=== PATIENT | female | born 1975 | race Caucasian/White ===

== ENCOUNTER 2020-05-28 18:02 | Emergency (ER) | payer OTHER, MEDICAID ==
[~2020-05-28] VITALS: Ht 170.2 cm; Wt 74.8 kg
[~2020-05-28 18:02] MED LIST: HYDR-3658
--- NOTE | 2020-05-28 18:04 | NUR ---
BROTHER NAE WANTS TO BE INFORMED OF SISTER'S CONDITION. CALL [phone]
[2020-05-28] MEDS ORDERED: methylPREDNISolone SOD SUCC 125 MG/2ML VIAL ONE (18:15)
[2020-05-28] MEDS ORDERED: EPINEPHRINE (1:1000) 1 MG/ML AMPUL ONE (18:15)
[2020-05-28] MEDS ORDERED: diphenhydrAMINE HCL 50 MG/ML VIAL ONE (18:15)
[2020-05-28] MEDS ORDERED: FAMOTIDINE/PF INJ 20 MG/2 ML VIAL IV ONE ×2 (18:17→18:30)
[2020-05-28] MEDS ORDERED: EPINEPHRINE (1:1000) 1 MG/ML AMPUL SUBCUT ONE (18:30)
[2020-05-28] MEDS ORDERED: methylPREDNISolone SOD SUCC 125 MG/2ML VIAL IV ONE (18:30)
[2020-05-28] MEDS ORDERED: diphenhydrAMINE HCL 50 MG/ML VIAL IV ONE (18:30)
--- NOTE | 2020-05-28 18:32 | NUR ---
CAMRON FROM HOME TO ER BED 12. AAOX4. NOT IN RESP DISTRESS, BREATHING EVEN AND UNLABORED. TALKING IN SENTENCES. BROUGHT IN FOR AN ALLERGIC REACTION. PER PT, SHE USE A HAIR BLEACH ON HER AND STARTED TO HAVE REDNESS, HIVES AND ITHCHING. 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 PT IN NOTED WITH REDNESS AND ITCHING ON HER SCALP. NOTED HIVE ALL OVER THE BODY. SHAMEKA MOSCOSO AT BEDSIDE FOR EVAL. ORDERS RECEIVED NOTED AND CARRIED OUT. IV ESTABLISHED ON R AC 20G. MEDICATED ORDERED. WILL CONTINUE TO MONITOR PT
--- NOTE | 2020-05-28 18:38 | NUR ---
Eugene fishman in [facility] - 05/28/20 at 1838 by KATHERINE EMT AT BEDSIDE FOR ORTHO TX
--- NOTE | 2020-05-28 20:47 | NUR ---
Patient discharged to home in stable condition. Written and verbal after care instructions given. Patient verbalizes understanding of instruction.IV removed. Catheter intact and site benign. Pressure and 4x4 applied to site. No bleeding noted. Pt ambulatory with a steady gait
[2020-05-28 20:48] VITALS: BP 102/58
== END 2020-05-28 20:49 | disposition home or self-care (01) ==
LOC: ER 18:02
DX: T88.6XXA Anaphylactic reaction due to adverse effect of correct drug or medicament properly administered, initial encounter (principal); T49.4X5A Adverse effect of keratolytics, keratoplastics, and other hair treatment drugs and preparations, initial encounter; L50.9 Urticaria, unspecified; Z98.890 Other specified postprocedural states; Y92.89 Other specified places as the place of occurrence of the external cause
CPT/HCPCS: 96372; 96374; 96375; 99284; J0171; J1200; J2930; J3490

== ENCOUNTER 2021-04-04 14:20 | Emergency (ER) | payer OTHER, MEDICAID ==
[~2021-04-04] VITALS: Ht 162.6 cm; Wt 82.1 kg
--- NOTE | 2021-04-04 14:45 | NUR ---
THE PATIENT BIBS FOR C/O ALLERGIC REACTION AFTER USING HAIR DYE, SPEAKING FULL SENTENCES,NAD. IN ROOM AIR AND DENIES SOB. RESPIRATION REGULAR AND UNLABORED. COMPLAINS OF ABDMINAL PAIN 2/10. NOTED SCATTERED RASH ON CHEST AND LIGHT FACIAL REDNESS. WILL CONTINUE TO MONITOR THE PATIENT.
[2021-04-04] MEDS ORDERED: diphenhydrAMINE HCL 50 MG/ML VIAL ONE (15:49)
[2021-04-04] MEDS ORDERED: FAMOTIDINE/PF INJ 20 MG/2 ML VIAL IV ONE (15:49)
[2021-04-04 16:10] LABS: BASOPHILS % (AUTO) 0.5 % (0.0-2.0); EOSINOPHILS % (AUTO) 0.5 % (0.0-6.0); HEMATOCRIT 39 % (33-45); HEMOGLOBIN 12.6 g/dL (11.5-14.8); LYMPHOCYTES % (AUTO) 21.2 % (20.0-44.0); MEAN CORPUSCULAR HGB CONC 33 g/dl (31.0-36.0); MEAN CORPUSCULAR VOLUME 90 fL (82-100); MONOCYTES # (AUTO) 0.6 K/uL (0.1-1.30); MONOCYTES % (AUTO) 6.3 % (2.0-12.0); NEUTROPHILS # (AUTO) 6.6 K/uL (1.8-8.9); NEUTROPHILS % (AUTO) 71.5 % (43.0-81.0); PLATELET COUNT (AUTO) 320 K/uL (150-450); RED BLOOD CELL COUNT(AUTO) 4.32 MIL/uL (4.0-5.2); WHITE BLOOD COUNT (AUTO) 9.3 K/uL (4.3-11.0)
[2021-04-04 16:13] LABS: BILIRUBIN,URINE Negative (NEGATIVE); COLOR,URINE YELLOW (YELLOW); LEUKOCYTE ESTERASE ,URINE Small (NEGATIVE); NITRITE, URINE Negative (NEGATIVE); PROTEIN,URINE Negative (NEGATIVE); UGLUCOSE Negative (NEGATIVE); UROBILINOGEN,URINE 0.2 EU/dL (0.2)
[2021-04-04 16:18] LABS: CALCIUM, SERUM 8.9 mg/dL (8.5-10.1); CREATININE 0.6 mg/dL (0.6-1.3); POTASSIUM 3.9 mmol/L (3.5-5.1)
[2021-04-04] MEDS: IV NS 0.9% 1,000 ML IV ONE (16:22)
[2021-04-04] MEDS: diphenhydrAMINE HCL 50 MG/ML VIAL IV ONE (16:22)
[2021-04-04] MEDS: FAMOTIDINE/PF INJ 20 MG/2 ML VIAL IV ONE (16:22)
[2021-04-04 16:24] LABS: ALBUMIN 3.6 g/dL (3.4-5.0); BILIRUBIN,DIRECT 0.1 mg/dL (0.0-0.2); BILIRUBIN,TOTAL 0.2 mg/dL (0.2-1.0); TOTAL PROTEIN, SERUM 7.6 g/dL (6.4-8.2)
[2021-04-04 16:32] LABS: BACTERIA,URINE Moderate /HPF (None Seen); WBC,URINE 0-2 /HPF (0-3)
[2021-04-04] MEDS ORDERED: FAMO-131 PO (17:35)
[2021-04-04] MEDS ORDERED: NITR100C6 PO (17:36)
[2021-04-04] MEDS ORDERED: DIPH50CA4 PO (17:36)
[2021-04-04 18:01] VITALS: BP 128/72
--- NOTE | 2021-04-04 18:01 | NUR ---
Patient discharged to home in stable condition. Written and verbal after care instructions given. Patient verbalizes understanding of instruction.
== END 2021-04-04 18:02 | disposition home or self-care (01) ==
LOC: ER 14:25
DX: T78.40XA Allergy, unspecified, initial encounter (principal); N39.0 Urinary tract infection, site not specified; Z98.890 Other specified postprocedural states; Z79.899 Other long term (current) drug therapy; X58.XXXA Exposure to other specified factors, initial encounter
CPT/HCPCS: 36415; 80048; 80076; 81001; 83690; 84703; 85025; 87086; 96361; 96374; 96375; 99284; J1200; J3490; J7030

== ENCOUNTER 2024-08-04 19:33 | Emergency (ER) | payer OTHER, MEDICAID ==
[~2024-08-04 19:33] MED LIST changes: +DIPH50CA4 PO; +FAMO-131 PO; +NITR100C6 PO
== END 2024-08-04 21:37 | disposition left against medical advice (07) ==
LOC: EDUNIT# 19:33 → ER 19:37
DX: Z04.1 Encounter for examination and observation following transport accident (principal); Z53.21 Procedure and treatment not carried out due to patient leaving prior to being seen by health care provider